=== PATIENT | female | born 1965 ===

== ENCOUNTER 2017-11-22 18:24 | Emergency (ER) | payer MEDICARE ==
[~2017-11-22] VITALS: Ht 172.7 cm; Wt 72.1 kg
--- NOTE | 2017-11-22 19:47 | Diagnostic Imaging Report ---
History: Neck pain, unable to move left arm for 4 days. Comparison studies: None Technique: Axial images were obtained through the cervical region. Coronal and sagittal images reconstructed from the axial data. Intravenous contrast: None Findings: Atlantoaxial articulation: Intact Alignment: Loss of normal cervical lordosis is either positional or due to muscle spasm. Cervicomedullary junction: No abnormalities. Patent foramen magnum. Soft tissues: No gross abnormalities. Vertebrae: Expected postoperative changes from prior anterior cervical spine fusion that extends from level C3-C7, with complete bony ankylosis. Suboptimal evaluation at this level due to metallic artifacts. The metallic hardware is intact. Bony ankylosis of the posterior elements on the left side at level C3-C4 and at on the right at level C4-C5. 3 No fractures, neoplasm or infection. Degenerative changes: C2-C3: Advanced right facet arthrosis results in mild right foraminal stenosis . C3-4: Mild right and moderate left foraminal stenosis due to facet and uncovertebral arthrosis. . C4-5: Moderate right foraminal stenosis due to facet and uncovertebral arthrosis . C5-6: 2 mm retrolisthesis and uncovertebral arthrosis results in mild canal stenosis. Moderate right foraminal stenosis due to facet and uncovertebral arthrosis. C6-7: Mild left foraminal stenosis due to facet and uncovertebral arthrosis. . C7-T1: Mild right foraminal stenosis due to facet and uncovertebral arthrosis . IMPRESSION: 1. Multilevel cervical spondylosis, particularly mild canal stenosis at C5-C6. 2. Multilevel foraminal stenosis, particularly mild right at C2-C3, mild right and moderate left at C3-C4, moderate right at C4-C5, moderate right at C5-C6, mild left at C6-C7 and mild right at C7-T1. 3. Expected postoperative changes from prior anterior cervical spine fusion from level C3-C7. 4. Ligament, spinal cord and or vascular abnormalities cannot be excluded on the basis of this examination. Signed by: Dr. Rebecca Linder M.D. on 11/22/2017 7:44 PM
--- NOTE | 2017-11-22 19:53 | Diagnostic Imaging Report ---
EXAMINATION: CHEST 2 VIEWS INDICATION: \S\HARD TO BREATH \[id number] \S\[id number] COMPARISON: None FINDINGS: PA and lateral views TUBES and LINES: None. LUNGS: Lungs are well inflated. Retrocardiac and left base hazy opacities. PLEURA: No significant pleural effusion or pneumothorax. HEART AND MEDIASTINUM: The cardiomediastinal silhouette is unremarkable. Airways mildly tortuous. BONES AND SOFT TISSUES: No acute osseous lesion. Partially imaged cervical spine fusion hardware. Soft tissues are unremarkable. UPPER ABDOMEN: No free air under the diaphragm. IMPRESSION: Mild retrocardiac and left base hazy opacification, representing atelectasis and/or pneumonia in the appropriate clinical setting. Signed by: Dr. Ajay Nunn MD on 11/22/2017 7:50 PM
--- NOTE | 2017-11-22 21:31 | Diagnostic Imaging Report ---
EXAM: CT Chest WITHOUT contrast 11/22/2017 9:02 PM INDICATION: Evaluation for potential pneumonia in the left lower lobe. COMPARISON: Chest x-ray on 11/22/2017 TECHNIQUE: Chest was scanned utilizing a multidetector helical scanner from the lung apex through the level of the adrenal glands without administration of IV contrast. Absence of intravenous contrast decreases sensitivity for detection of lymphadenopathy and vascular pathology. Coronal and sagittal reformations were obtained. Routine protocol was performed. IV CONTRAST: None RADIATION DOSE: Total DLP: 489.83 mGy*cm Estimated effective dose: (DLP x 0.014 x size factor) mSv COMPLICATIONS: None FINDINGS: LINES/ TUBES: None. LUNGS AND AIRWAYS: There is bibasilar atelectasis left greater than right. Airways are normal. PLEURA: The pleural spaces are clear. HEART AND MEDIASTINUM: The thyroid gland is normal. No mediastinal, hilar or axillary lymphadenopathy. A few calcified lymph nodes are present in the left hilum and prevascular space The heart is normal in size.. There is trace of pericardial effusion. UPPER ABDOMEN: Limited non-contrast views of the upper abdomen show no abnormality within the visualized liver, spleen, pancreas, or kidneys. The adrenal glands are normal. BONES: The visualized bony thorax is within normal limits. SOFT TISSUES: Unremarkable. IMPRESSION: No evidence of pneumonia. Findings chest x-ray corresponds to minimal platelike atelectasis in the left lower lobe. Signed by: Dr. Moises Katz M.D. on 11/22/2017 9:27 PM
[2017-11-22] MEDS ORDERED: TYLENOL # 31 EA PO (22:05)
[2017-11-22] MEDS ORDERED: AZITHROMYCIN250 MG PO (22:05)
[2017-11-22] MEDS ORDERED: CYCLOBENZAPRINE5 MG PO (22:35)
== END 2017-11-22 22:55 | disposition home or self-care (01) ==
LOC: ER 18:24
DX: J18.9 Pneumonia, unspecified organism (principal); F17.210 Nicotine dependence, cigarettes, uncomplicated
CPT/HCPCS: 71046; 71250; 72125; 99283